=== PATIENT | male | born 1985 | race Two or more races ===

== ENCOUNTER 2018-01-19 09:52 | Emergency (ER) | payer MEDICAID ==
[~2018-01-19] VITALS: Ht 170.2 cm; Wt 87.0 kg
[2018-01-19 09:53] VITALS: BP 115/75
== END 2018-01-19 10:41 | disposition home or self-care (01) ==
LOC: ED 10:30
DX: M46.1 Sacroiliitis, not elsewhere classified (principal)
CPT/HCPCS: 99283